=== PATIENT | male | born 1970 | race Caucasian/White ===

== ENCOUNTER 2016-11-03 13:47 | Inpatient (IN) | payer BC ==
[~2016-11-03] VITALS: Ht 185.4 cm; Wt 73.5 kg
[2016-11-03] MEDS ORDERED: CYCL10TA PO ×2 (14:11→22:28)
[2016-11-03] MEDS ORDERED: ALEV220T26 PO (14:11)
--- NOTE | 2016-11-03 15:20 | REP ---
CHEST, TWO VIEWS: No comparison study. Two views of the chest are performed. There is mild bibasilar atelectasis/infiltrate along the diaphragms. Heart is normal in size. Mediastinal silhouette is unremarkable. There are mild degenerative changes of the spine. IMPRESSION: Mild bibasilar atelectasis/infiltrate. Signed by Gil Pulido MD 11/03/2016 04:19 P
[2016-11-03] MEDS ORDERED: KETOROLAC 30 MG/ML VIAL (J1885) IV ONE (18:30)
[2016-11-03] MEDS ORDERED: ONDANSETRON 4MG/2ML VIAL (J2405) IV ONE (18:30)
[2016-11-03] MEDS ORDERED: NS 1,000 ML IV ONE (18:30)
[2016-11-03 18:53] LABS: BASO % 0.1 % (0.0-1.0); EOS # 0.1 K/mm3 (0.0-0.50); EOS % 0.6 % (0.0-3.0); LARGE UNSTAINED CELL # 0.1 K/mm3 (0.0-0.4); LARGE UNSTAINED CELL % 0.5 % (0.0-4.0); LYMPH # 1.1 K/mm3 (1.5-4.5); LYMPH % 8.6 % (24.0-44.0); MEAN CORPUSCULAR HEMOGLOBIN 33.8 pg (27.0-33.0); MEAN CORPUSCULAR HGB CONC 34.7 g/dl (32.0-36.5); MEAN CORPUSCULAR VOLUME 97.4 fl (80.0-96.0); MONO # 0.6 K/mm3 (0.0-0.8); MONO % 4.9 % (0.0-5.0); NEUTROPHILS # 10.4 K/mm3 (1.8-7.7); NEUTROPHILS % 85.3 % (36.0-66.0); PLATELET COUNT, AUTOMATED 315 k/mm3 (150-450); WHITE BLOOD COUNT 12.1 K/mm3 (4.0-10.0)
[2016-11-03 19:14] LABS: ALBUMIN/GLOBULIN RATIO 0.75 (1.00-1.93); ALKALINE PHOSPHATASE 117 U/L (45-117); ALT/SGPT 45 U/L (12-78); ANION GAP 7 MEQ/L (8-16); AST/SGOT 19 U/L (15-37); BILIRUBIN,DIRECT 0.1 MG/DL (0.0-0.2); BILIRUBIN,TOTAL 0.5 MG/DL (0.2-1.0); BLOOD UREA NITROGEN 13 MG/DL (7-18); CALCIUM LEVEL 8.6 MG/DL (8.5-10.1); CARBON DIOXIDE LEVEL 27 MEQ/L (21-32); CHLORIDE LEVEL 108 MEQ/L (98-107); CREATININE FOR GFR 0.87 MG/DL (0.70-1.30); GLOMERULAR FILTRATION RATE > 60.0 (>60); GLUCOSE, FASTING 111 MG/DL (70-105); POTASSIUM SERUM 3.9 MEQ/L (3.5-5.1); SODIUM LEVEL 142 MEQ/L (136-145)
[2016-11-03] MEDS ORDERED: HYDROmorphone HCL 1 MG/ML SYRINGE (J1170) IV ONE ×2 (19:30→21:45)
[2016-11-03] MEDS ORDERED: ISOVUE-370 76% 100ML VIAL (Q9967) As Ordered ONE (19:49)
--- NOTE | 2016-11-03 21:50 | REPUSA ---
CT angiogram of the chest Clinical statement: Chest pain and shortness of breath. Technique: Multiple axial CT images were obtained from the thoracic inlet through the upper abdomen a fter a bolus administration of nonionic intravenous contrast. Coronal and sagittal reconstructions we re also obtained. No comparison is available. Findings: The pulmonary arteries are well-opacified with contrast. There are intraluminal filling def ects bilaterally.in the right lung, there is an embolism within the posterior segment of the right lo wer lobe. On the left side, there is embolism in the left main pulmonary artery extending into the le ft upper and left lower lobes. The thoracic aorta is unremarkable. Thyroid gland is within normal feliciano its. There is no thoracic lymphadenopathy. There is a small right-sided pleural effusion with right l ower lobe infiltrate. There is also minimal left lower lobe infiltrate. Limited imaging of the upper abdomen is unremarkable. There are no suspicious osseous lesions. Impression: 1. Pulmonary embolism in the left main pulmonary artery extending into the left upper and left lower lobe segmental branches. 2. Embolism in the posterior segment of the right lower lobe pulmonary artery. 3. Small right-sided pleural effusion. Bilateral lower lobe infiltrate/atelectasis. ER physician was notified of these findings at 9:47 PM on 11/03/2016.
[2016-11-03] MEDS ORDERED: PERCOCET 5MG/325MG TAB PO PRN (23:15)
[2016-11-03 23:58] LABS: ERYTHROCYTE SEDIMENTATION RATE 23 mm/hr (0-15)
[2016-11-04] VITALS (7 sets, daily range): BP systolic 100–114; BP diastolic 56–76
--- NOTE | 2016-11-04 00:20 | REPUSA ---
CLINICAL HISTORY: Edema. COMMENTS: Real time sonography with duplex doppler of the extremities bilaterally was performed with attention to the major deep venous structures. Partially occluded right common femoral vein. Occluded superficial femoral vein. Duplicated superficial femoral vein. The second vein is patent. The remaining deep veins are unremarkable. IMPRESSION: Acute deep venous thrombosis as described above. Thank you for your kind referral of this patient.
[2016-11-04] MEDS ORDERED: APIXABAN 5 MG TAB (ELIQUIS) PO ONE (02:00)
[2016-11-04] MEDS: MORPHINE 2 MG/ML 1ML SYRINGE IV PRN ×3 (02:39→19:08)
--- NOTE | 2016-11-04 05:20 | HPE ---
DATE OF ADMISSION: 11/03/2016 REASON FOR ADMISSION: Pulmonary emboli. PRIMARY CARE PROVIDER: None. HISTORY OF PRESENT ILLNESS: Patient is a 46-year-old male with no past medical history presented to the emergency room complaining of right-sided flank pain. Patient stated that it started earlier that day. He was sitting and he felt sharp stabbing pain in his right left flank. It was worsened by deep inspiration. He presented to the emergency room. He underwent a CT of the abdomen, which showed right lower lobe infiltrate in the lung, some atelectatic change in the left lower lobe. He was shown to have distended urinary bladder and no hydronephrosis, normal appendix and no other acute findings found. He underwent also a CT of the chest. CT angiogram, which showed pulmonary emboli in the left main pulmonary artery extending into the left upper and lower lobe branches. He was also found to have emboli in the posterior segment of the right lower lobe of the pulmonary artery. Patient's oxygen saturation were 94-93 on room air. He was not tachycardiac with a pulse in the 80s. He was however, complaining of pain requiring two doses of Dilaudid and a dose of Toradol. Hospitalist was called for the admission. REVIEW OF SYSTEMS: 12-point review of systems was obtained. All which was negative except for those mentioned above. PAST MEDICAL HISTORY: Patient has no medical history. He was evaluated in the past by urology for possible bladder cancer after he had some episodes of blood in the urine. However, workup was found to be negative. He has not seen a doctor in many years. He is currently on no medications other than Advil he takes occasionally for pain. PAST SURGICAL HISTORY: None. ALLERGIES: None. MEDICATIONS: None. FAMILY HISTORY: Noncontributory. Patient has no family history of blood clots or any clotting disorder that he knows of. SOCIAL HISTORY: Patient smokes half a pack to a quarter of a pack a day for many years. Denies any alcohol use. Lives at home with his mother. PHYSICIAN FINDINGS: Temperature on admission 98.3, pulse 85, respiratory rate 20, blood pressure is 114/76, pulse oximetry 94% on room air. HEENT: Pupils equal round reactive light accommodation. Neck: Supple. No jugular venous distention (JVD). Lungs: Clear bilaterally. Abdomen: Soft, nontender, nondistended. Cardiac: Regular rate and rhythm. No murmurs appreciated. Extremities: No clubbing, cyanosis or edema. LABORATORY FINDINGS: WBC is 12.1, hemoglobin 14.4, hematocrit 41.9, platelet count 315. Sedimentation rate 23. Urinalysis was normal. Sodium 142, potassium 3.9, chloride 108, BUN 13, creatinine 0.87, fasting glucose 111, troponin less than 0.02, C-reactive protein 8.91, lipase 118. IMAGING STUDIES: As above. Lower extremity ultrasound was also done. It showed acute deep venous thrombosis (DVT) partially occluding the right common femoral vein. ASSESSMENT AND PLAN: : 1. Bilateral pulmonary emboli. Patient was found to have a left main pulmonary artery emboli extending it into the left upper and lower lobe segments and a right lower lobe pulmonary artery embolism. 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 He denies any family history of blood clots. He denies any personal history of any DVTs or PEs. He stated that he had leg pain last week over his left leg and it was swollen, but he did not seek any medical attention at the time. Right now he denies any lower extremity pain, however does appear to be more swollen on the left side. We will admit patient, start him on Eliquis 10 mg by mouth twice a day. We will order hypercoagulability workup. Patient will need to establish with primary care provider. 2. Deep venous thrombosis in right common femoral vein. We will continue Eliquis twice a day. 3. History of tobacco abuse. We will advise patient on smoking cessation. 4. Chest pain, likely secondary to pulmonary emboli. We will continue to trend cardiac enzymes. We will order an echocardiogram. 5. Patient had history of hematuria in the past. He was evaluated by urology. He was not found to have any signs of cancer at the time had a cystoscopy in 2008. May need another workup to rule out any obvious sources of cancer. Patient will be seen by Dr. Elzbieta Beatty in the morning.
[2016-11-04 05:56] LABS: BASO % 0.1 % (0.0-1.0); EOS # 0.1 K/mm3 (0.0-0.50); EOS % 0.6 % (0.0-3.0); LARGE UNSTAINED CELL # 0.1 K/mm3 (0.0-0.4); LARGE UNSTAINED CELL % 1.3 % (0.0-4.0); LYMPH # 1.3 K/mm3 (1.5-4.5); LYMPH % 11.8 % (24.0-44.0); MEAN CORPUSCULAR HEMOGLOBIN 33.5 pg (27.0-33.0); MEAN CORPUSCULAR HGB CONC 34.5 g/dl (32.0-36.5); MEAN CORPUSCULAR VOLUME 97.1 fl (80.0-96.0); MONO # 0.6 K/mm3 (0.0-0.8); MONO % 5.7 % (0.0-5.0); NEUTROPHILS # 8.6 K/mm3 (1.8-7.7); NEUTROPHILS % 80.5 % (36.0-66.0); PLATELET COUNT, AUTOMATED 297 k/mm3 (150-450); RED CELL DISTRIBUTION WIDTH 12.9 % (11.5-14.5); WHITE BLOOD COUNT 10.6 K/mm3 (4.0-10.0)
--- NOTE | 2016-11-04 06:23 | REP ---
CT abdomen and pelvis without IV or oral contrast: Renal stone protocol. History: Question right-sided kidney stone. Comparison CT study is from March 21, 2009. Findings: Preliminary digital business objects report developer radiograph is unremarkable. There is an infiltrate in the right lower lobe of the lung consistent with pneumonia. There is also granulomatous calcification and a very small quantity of right pleural fluid. There is patchy consolidation in the left lung base as well. These findings are new when compared with the 2009 prior exam. The opacities in the left base may be atelectatic. The liver and the spleen are normal in size, homogeneous in texture. Gallbladder is unremarkable. No adrenal lesion is seen. The pancreas shows no abnormality. There is no evidence of intrarenal calculus or hydronephrosis on either side. No ureteral stone is visible. The urinary bladder is rather distended but otherwise intact. No bladder calculus is appreciated. No bladder mass lesion is observed. Seminal vesicles and prostate are unremarkable. No abdominal wall defect is seen. Small and large bowel loops are normal in the abdomen and pelvis. A normal appendix is seen in the right lower quadrant. There is some vascular calcification. Impression: Distended urinary bladder. No hydronephrosis or renal calculus seen. Normal appendix noted. Otherwise negative CT study of the abdomen and pelvis without contrast. Signed by Gerry Shannon MD 11/04/2016 10:04 A
[2016-11-04 06:24] LABS: ALBUMIN 2.9 GM/DL (3.2-5.2); ALBUMIN/GLOBULIN RATIO 0.97 (1.00-1.93); ALKALINE PHOSPHATASE 112 U/L (45-117); ALT/SGPT 37 U/L (12-78); ANION GAP 8 MEQ/L (8-16); AST/SGOT 14 U/L (15-37); BILIRUBIN,TOTAL 0.7 MG/DL (0.2-1.0); BLOOD UREA NITROGEN 12 MG/DL (7-18); CALCIUM LEVEL 8.3 MG/DL (8.5-10.1); CARBON DIOXIDE LEVEL 26 MEQ/L (21-32); CHLORIDE LEVEL 108 MEQ/L (98-107); CREATININE FOR GFR 0.73 MG/DL (0.70-1.30); GLOMERULAR FILTRATION RATE > 60.0 (>60); GLUCOSE, FASTING 96 MG/DL (70-105); MAGNESIUM LEVEL 2.3 MG/DL (1.8-2.4); POTASSIUM SERUM 4.2 MEQ/L (3.5-5.1); SODIUM LEVEL 142 MEQ/L (136-145); TOTAL PROTEIN 5.9 GM/DL (6.4-8.2)
[2016-11-04] MEDS: APIXABAN 5 MG TAB (ELIQUIS) PO SCH ×2 (08:44→20:13)
[2016-11-04] MEDS: PERCOCET 5MG/325MG TAB PO PRN ×3 (08:45→21:19)
[2016-11-04] MEDS: NICOTINE 14 MG/24 HR TRANSDERMAL TD SCH (08:45)
[2016-11-04] MEDS: KETOROLAC 30 MG/ML VIAL (J1885) IV PRN ×3 (11:34→23:28)
[2016-11-05] MEDS: PERCOCET 5MG/325MG TAB PO PRN ×4 (03:13→21:53)
[2016-11-05 04:00] VITALS: BP 110/63
[2016-11-05 05:50] LABS: BASO % 0.4 % (0.0-1.0); EOS # 0.1 K/mm3 (0.0-0.50); EOS % 1.5 % (0.0-3.0); LARGE UNSTAINED CELL # 0.1 K/mm3 (0.0-0.4); LARGE UNSTAINED CELL % 1.4 % (0.0-4.0); LYMPH # 1.3 K/mm3 (1.5-4.5); LYMPH % 18.7 % (24.0-44.0); MEAN CORPUSCULAR HGB CONC 34.2 g/dl (32.0-36.5); MEAN CORPUSCULAR VOLUME 99.5 fl (80.0-96.0); MONO # 0.5 K/mm3 (0.0-0.8); MONO % 7.6 % (0.0-5.0); NEUTROPHILS # 4.4 K/mm3 (1.8-7.7); NEUTROPHILS % 70.4 % (36.0-66.0); PLATELET COUNT, AUTOMATED 277 k/mm3 (150-450); RED CELL DISTRIBUTION WIDTH 12.9 % (11.5-14.5); WHITE BLOOD COUNT 6.3 K/mm3 (4.0-10.0)
[2016-11-05 06:09] LABS: ALBUMIN 2.6 GM/DL (3.2-5.2); ALBUMIN/GLOBULIN RATIO 0.72 (1.00-1.93); ALKALINE PHOSPHATASE 109 U/L (45-117); ALT/SGPT 45 U/L (12-78); ANION GAP 2 MEQ/L (8-16); AST/SGOT 31 U/L (15-37); BILIRUBIN,TOTAL 0.3 MG/DL (0.2-1.0); BLOOD UREA NITROGEN 10 MG/DL (7-18); CALCIUM LEVEL 8.1 MG/DL (8.5-10.1); CARBON DIOXIDE LEVEL 30 MEQ/L (21-32); CHLORIDE LEVEL 108 MEQ/L (98-107); CREATININE FOR GFR 0.76 MG/DL (0.70-1.30); GLOMERULAR FILTRATION RATE > 60.0 (>60); GLUCOSE, FASTING 99 MG/DL (70-105); MAGNESIUM LEVEL 2.2 MG/DL (1.8-2.4); POTASSIUM SERUM 4.2 MEQ/L (3.5-5.1); SODIUM LEVEL 140 MEQ/L (136-145); TOTAL PROTEIN 6.2 GM/DL (6.4-8.2)
[2016-11-05] MEDS: KETOROLAC 30 MG/ML VIAL (J1885) IV PRN ×3 (06:28→19:15)
[2016-11-05 08:16] VITALS: BP 116/74
[2016-11-05] MEDS: NICOTINE 14 MG/24 HR TRANSDERMAL TD SCH (08:32)
[2016-11-05] MEDS: APIXABAN 5 MG TAB (ELIQUIS) PO SCH ×2 (08:33→20:02)
--- NOTE | 2016-11-05 09:18 | ECGEPIP ---
Stationary ECG Study [facility] - ED Test Date: 2016-11-03 Pat Name: MAYANK BARTHOLOMEW Department: Room: [place] [address] Gender: M Battery Assembler: nereida : 1970 Requested By: Ernesto Angel PA-C Order Number: [id number] Reading MD: Louise Dale Measurements Intervals Reubens Rate: 90 P: 41 [place]: 130 QRS: 37 QRSD: 94 T: 39 QT: 373 QTc: 458 Interpretive Statements SINUS RHYTHM NO PRIOR FOR COMPARISON Electronically Signed On 11-05-2016 9:18:44 EST by Louise Dale
[2016-11-05 11:28] VITALS: BP 109/60
[2016-11-05] MEDS ORDERED: ELIQ5TAB PO ×2 (13:04→13:14)
--- NOTE | 2016-11-05 13:17 | IPNPDOC ---
Subjective Date Seen The patient was seen on 11/05/16. Subjective Chief Complaint/HPI The patient is a 46-year-old male admitted with a reason for visit of Pulmonary Embolism. Events since last encounter chest pain better controlled, cough better , no fever or chills, no leg pain , no nausea or vomiting or diarrhea, no abdominal pain . Objective Physical Examination General Exam: Positive: Alert, No Acute Distress Eye Exam: Positive: Conjunctiva & lids normal, EOMI, PERRLA, Negative: Sclera icteric ENT Exam: Positive: Atraumatic, Mucous membr. moist/pink, Pharynx Normal Neck Exam: Positive: Supple, Negative: JVD, thyromegaly Chest Exam: Positive: Clear to auscultation, Normal air movement Heart Exam: Positive: Normal S1, Normal S2, Rate Normal, Regular Rhythm, Negative: Murmurs, Rubs Telemetry: Positive: No significant arrhythmia Abdomen Exam: Positive: Normal bowel sounds, Soft, Negative: Hepatospenomegaly, Tenderness Extremity Exam: Positive: Normal pulses, Negative: Clubbing, Cyanosis, Edema Skin Exam: Positive: Nl turgor and temperature, Negative: Breakdown, Rash Assessment /Plan Problems (1) DVT (deep venous thrombosis) Status: Acute Problem Text: right femoral vein continue eliquis (2) Pulmonary embolism Status: Acute Problem Text: continue Eliquis pain control with percocet and ketorolac prn. Plan/VTE VTE Prophylaxis Ordered?: Yes VS, I&O, 24H, [facility] Vital Signs/I&O Vital Signs Date Time Temp Pulse Resp B/P Pulse Ox O2 Delivery O2 Flow Rate FiO2 11/05/16 12:00 Room Air 11/05/16 11:28 96.6 71 20 109/60 95 I&O- Last 24 Hours up to 6 AM 11/05/16 06:00 Intake Total 2700 ml Output Total 1350 ml Balance 1350 ml Laboratory Data 24H LABS Laboratory Tests 2 11/04/16 13:55: Creatine Kinase MB 1.0, Creatine Kinase MB Relative Index 2.17, Total Creatine Kinase 46, Troponin I < 0.02 11/04/16 20:44: Creatine Kinase MB 1.0, Creatine Kinase MB Relative Index 2.27, Total Creatine Kinase 44, Troponin I < 0.02 11/05/16 05:29: Blood Urea Nitrogen 10, Creatinine 0.76, Sodium Level 140, Potassium Level 4.2, Chloride Level 108H, Carbon Dioxide Level 30, Calcium Level 8.1L, Aspartate Amino Transf (AST/SGOT) 31, Alanine Aminotransferase (ALT/SGPT) 45, Alkaline Phosphatase 109, Total Bilirubin 0.3#, Total Protein 6.2L, Albumin 2.6L, Albumin /Globulin Ratio 0.72L, Anion Gap 2L, White Blood Count 6.3, Red Blood Count 3.78L, Hemoglobin 12.8L, Hematocrit 37.6L, Mean Corpuscular Volume 99.5H, Mean Corpuscular Hemoglobin 34.0H, Mean Corpuscular Hemoglobin Concent 34.2, Red Cell Distribution Width 12.9, Platelet Count 277, Neutrophils (%) (Auto) 70.4H, Lymphocytes (%) (Auto) 18.7L, Monocytes (%) (Auto) 7.6H, Eosinophils (%) (Auto) 1.5, Basophils (%) (Auto) 0.4, Neutrophils # (Auto) 4.4, Lymphocytes # (Auto) 1.3L, Monocytes # (Auto) 0.5, Eosinophils # (Auto) 0.1, Basophils # (Auto) 0.0, Glomerular Filtration Rate > 60.0, Large Unclassified Cells # 0.1, Large Unclassified Cells % 1.4, Magnesium Level 2.2 CBC/BMP Laboratory Tests 11/05/16 05:29 Calcium Level 8.1 L, Aspartate Amino Transf (AST/SGOT) 31, Alanine Aminotransferase (ALT/SGPT) 45, Alkaline Phosphatase 109, Total Bilirubin 0.3 # , Total Protein 6.2 L, Albumin 2.6 L, Red Blood Count 3.78 L, Mean Corpuscular Volume 99.5 H, Mean Corpuscular Hemoglobin 34.0 H, Mean Corpuscular Hemoglobin Concent 34.2, Red Cell Distribution Width 12.9, Neutrophils (%) (Auto) 70.4 H, Lymphocytes (%) (Auto) 18.7 L, Monocytes (%) (Auto) 7.6 H, Eosinophils (%) (Auto ) 1.5, Basophils (%) (Auto) 0.4, Neutrophils # (Auto) 4.4, Lymphocytes # (Auto) 1.3 L, Monocytes # (Auto) 0.5, Eosinophils # (Auto) 0.1, Basophils # (Auto) 0.0 HUGO GOTTLIEB MD Nov 05, 2016 13:17
[2016-11-05 15:43] VITALS: BP 132/81
--- NOTE | 2016-11-05 16:36 | ECHO ---
DATE OF PROCEDURE: 11/05/2016 REFERRING PHYSICIAN: Dr. Eneida Christensen INDICATION: Dyspnea. HEIGHT: 185 cm WEIGHT: 73 kg MEASUREMENTS: Left atrium: 3.9 cm Aortic root: 3.2 cm LVOT: 2.3 cm Ventricular septum: 0.97 cm Posterior wall: 0.97 cm Left ventricle diastole: 5.3 cm Inferior vena cava: 1.6 cm DOPPLER MEASUREMENTS: Aortic valve velocity: 127 cm/s LVOT velocity: 91.7 cm/s LVOT/VTI: 17.0 cm Mild mitral regurgitation Mitral E velocity: 68.6 cm/s Mitral A velocity: 53.3 cm/s Beth deceleration time: 201 ms. Mild tricuspid regurgitation. Estimated right ventricle systolic pressure: 23-28 mmHg assuming a right atrial pressure of 5-10 mmHg. Pulmonary artery systolic pressure: 21 mmHg by pulmonary acceleration time method. MITRAL ANNULAR TISSUE DOPPLER: E prime septal: 10.4 cm/s E prime lateral: 11.8 cm/s DESCRIPTION: Rhythm was sinus. Image quality was adequate. No pericardial effusion. This is a 2D, M-mode, color flow Doppler, and pulse wave Doppler examination and included mitral annular tissue Doppler. CONCLUSIONS: 1. Normal echocardiogram Dopppler. 2. Normal left ventricle internal dimensions and wall thickness. No regional wall motion abnormalities. Normal left ventricle (LV) systolic function. Left ventricular ejection fraction (LVEF) 60% by visual estimate. Normal LV diastolic function. 3. Normal estimated right ventricle systolic pressure.
[2016-11-05 19:58] VITALS: BP 125/78
[2016-11-05 22:00] VITALS: BP 122/71
[2016-11-06] MEDS: KETOROLAC 30 MG/ML VIAL (J1885) IV PRN ×2 (01:23→07:42)
[2016-11-06 02:00] VITALS: BP 115/75
[2016-11-06] MEDS: PERCOCET 5MG/325MG TAB PO PRN ×2 (05:07→12:05)
[2016-11-06 06:00] VITALS: BP 114/74
[2016-11-06 06:52] LABS: BASO % 0.4 % (0.0-1.0); EOS # 0.2 K/mm3 (0.0-0.50); EOS % 3.7 % (0.0-3.0); LARGE UNSTAINED CELL # 0.1 K/mm3 (0.0-0.4); LARGE UNSTAINED CELL % 1.3 % (0.0-4.0); LYMPH # 1.1 K/mm3 (1.5-4.5); MEAN CORPUSCULAR HEMOGLOBIN 33.6 pg (27.0-33.0); MONO # 0.3 K/mm3 (0.0-0.8); MONO % 5.9 % (0.0-5.0); NEUTROPHILS # 3.9 K/mm3 (1.8-7.7); NEUTROPHILS % 70.6 % (36.0-66.0); PLATELET COUNT, AUTOMATED 302 k/mm3 (150-450); RED CELL DISTRIBUTION WIDTH 12.5 % (11.5-14.5); WHITE BLOOD COUNT 5.5 K/mm3 (4.0-10.0)
[2016-11-06 07:14] LABS: ALBUMIN 2.7 GM/DL (3.2-5.2); ALBUMIN/GLOBULIN RATIO 0.69 (1.00-1.93); ALKALINE PHOSPHATASE 125 U/L (45-117); ALT/SGPT 63 U/L (12-78); ANION GAP 8 MEQ/L (8-16); AST/SGOT 40 U/L (15-37); BILIRUBIN,TOTAL 0.4 MG/DL (0.2-1.0); BLOOD UREA NITROGEN 10 MG/DL (7-18); CALCIUM LEVEL 8.5 MG/DL (8.5-10.1); CARBON DIOXIDE LEVEL 27 MEQ/L (21-32); CHLORIDE LEVEL 108 MEQ/L (98-107); CREATININE FOR GFR 0.71 MG/DL (0.70-1.30); GLOMERULAR FILTRATION RATE > 60.0 (>60); GLUCOSE, FASTING 97 MG/DL (70-105); MAGNESIUM LEVEL 2.1 MG/DL (1.8-2.4); SODIUM LEVEL 143 MEQ/L (136-145); TOTAL PROTEIN 6.6 GM/DL (6.4-8.2)
[2016-11-06] MEDS: APIXABAN 5 MG TAB (ELIQUIS) PO SCH (07:41)
[2016-11-06] MEDS: NICOTINE 14 MG/24 HR TRANSDERMAL TD SCH (07:42)
[2016-11-06] MEDS ORDERED: PERCOCET PO (09:39)
--- NOTE | 2016-11-07 09:35 | DSES ---
DATE OF ADMISSION: 11/04/2016 DATE OF DISCHARGE: 11/06/2016 PRIMARY CARE PROVIDER: New primary care provider given to the patient at [facility]. DISCHARGE DIAGNOSES: Pulmonary embolism. Right sided lower extremity deep venous thrombosis (DVT). DISCHARGE MEDICATIONS: - Eliquis 10 mg twice daily for 5 days, then 5 mg twice daily to continue - oxycodone/acetaminophen 5/325 one to two tablets by mouth every 8 hours as needed pain - cyclobenzaprine 10 mg by mouth three times daily as needed muscle spasms - Naproxen 220 mg two tablets by mouth daily as needed pain HOSPITAL COURSE: This is a 46-year-old male with no past medical history, presented to the emergency room complaining of right sided flank pain and right sided lower chest pain which was sharp and worsened with deep inspiration. He underwent initially a CT of the abdomen which showed right lower lobe infiltrate in the lung and some atelectatic changes in the left lower lobe. Subsequently he underwent CT angio of the chest which showed pulmonary embolism in the left main pulmonary artery extending into the left upper and lower lobe branches and also emboli in the posterior segment of the right lower lobe and of the pulmonary artery. Patient did not have any hypoxia or tachycardia. Patient also had ultrasound scanning of the lower extremities which showed right sided deep venous thrombosis (DVT) involving the partially occluded right common femoral vein, occluded superficial femoral vein on the right. Patient was admitted and treated for pulmonary embolism and deep venous thrombosis (DVT). At present, vital signs stable, patient is functionally at baseline. Pain is controlled and is going to be discharged home. Patient's hypocoagulable workup has been ordered and is pending. Patient has been set up with a new primary care provider. PHYSICAL EXAMINATION: Vital signs: Temperature 96.3, pulse 61, respiratory rate 18, blood pressure 114/74, pulse oximetry 95% on room air. General: Patient awake, alert, oriented times three, sitting up in bed in no acute distress. HEENT: Normocephalic, atraumatic. Moist mucous membranes. Anicteric eyes. Chest: Clear to auscultation. Cardiovascular: S1, S2, regular. No rub, murmur or gallop. Abdomen: Soft, nontender. Bowel sounds present. Extremities: No edema. LABORATORY DATA: WBC 5.5, hemoglobin 13.2, platelets 302. Sodium 143, potassium 4, chloride 108, bicarbonate 27, BUN 10, creatinine 0.7. Liver function tests are normal. Cardiac enzymes, three sets are normal. Echocardiogram was normal ejection fracture. Left ventricular ejection fraction was 60%. There was normal left ventricular diastolic function. There was no regional wall motion abnormalities and normal valves. DISPOSITION: Patient is discharged home in stable condition. DISCHARGE INSTRUCTIONS: Patient to followup with primary care provider in 1 week. Regular diet. Activity as tolerated.
[2016-11-10 14:10] LABS: PROTEIN C ANTIGEN 47 % (60-150); PROTEIN S ANTIGEN FREE 144 % (57-157); PROTEIN S ANTIGEN TOTAL 146 % (60-150); SJOGREN'S ANTI SS-A <0.2 AI (0.0-0.9); SJOGREN'S ANTI SS-B <0.2 AI (0.0-0.9)
== END 2016-11-06 12:51 | disposition home or self-care (01) | DRG 197 ==
LOC: M ED 15:33 → M ED INP 22:23 → M PCU 11-04 01:59 → OBSVTOIN 11-04 10:24 → M MSPAV 11-05 19:53
PROVIDERS: ADMIT Internal Medicine; ATTEND Internal Medicine Nephrology
DX: I82.411 Acute embolism and thrombosis of right femoral vein (principal); I26.99 Other pulmonary embolism without acute cor pulmonale; F17.210 Nicotine dependence, cigarettes, uncomplicated

== ENCOUNTER 2022-09-03 05:18 | Emergency (ER) | payer BC ==
[~2022-09-03] VITALS: Ht 182.9 cm; Wt 72.9 kg
[~2022-09-03 05:18] MED LIST: ALEV220T26 PO; CYCL-707 PO; ELIQ5TAB PO; PERCOCET PO
[2022-09-03] MEDS ORDERED: SIMV40TA20 PO (05:35)
[2022-09-03 05:54] LABS: HEMATOCRIT 45.2 % (42.0-52.0); HEMOGLOBIN 15.5 g/dl (13.5-17.5); MEAN CORPUSCULAR HGB CONC 34.3 g/dl (32.0-36.5); MEAN CORPUSCULAR VOLUME 96.2 fl (80.0-96.0); PLATELET COUNT, AUTOMATED 261 10^3/uL (150-450); WHITE BLOOD COUNT 6.9 10^3/uL (4.0-10.0)
[2022-09-03 06:04] LABS: INR 1.12; PROTHROMBIN TIME 14.6 SECONDS (12.5-14.5)
[2022-09-03 06:26] LABS: CK-MB VALUE MASS 1.2 NG/ML (<3.6)
[2022-09-03 06:28] LABS: BLOOD UREA NITROGEN 20 MG/DL (9-23); CALCIUM LEVEL 9.6 MG/DL (8.5-10.1); CARBON DIOXIDE LEVEL 27 MMOL/L (20-31); CHLORIDE LEVEL 103 MMOL/L (98-107); CREATININE FOR GFR 0.78 MG/DL (0.70-1.30); GLOMERULAR FILTRATION RATE > 60.0 (>56); GLUCOSE, FASTING 104 MG/DL (60-100); POTASSIUM SERUM 4.6 MMOL/L (3.5-5.1); SODIUM LEVEL 141 MMOL/L (136-145)
[2022-09-03 06:31] LABS: CPK CREATINE PHOSPHOKINASE 77 U/L (46-171); MB/CK RELATIVE INDEX 1.55 (< OR =4)
[2022-09-03 06:58] LABS: ATYPICAL LYMPH 4 % (0-5); BASOPHILS 1 % (0-1); EOSINOPHILS 4 % (0-3); LYMPHOCYTES 18 % (16-44); MONOCYTES 10 % (0-5); NEUTROPHILS 63 % (28-66); PLATELET ESTIMATE NORMAL (NORMAL)
[2022-09-03] MEDS ORDERED: KETOROLAC 30 MG/ML 1ML VIAL IV ONE (07:55)
[2022-09-03] MEDS ORDERED: ISOVUE-370 76% 100ML VIAL As Ordered ONE (08:14)
[2022-09-03 08:56] LABS: CPK CREATINE PHOSPHOKINASE 61 U/L (46-171); MB/CK RELATIVE INDEX 1.63 (< OR =4)
[2022-09-03] MEDS ORDERED: PERCOCET 5MG/325MG TAB PO ONE (10:00)
[2022-09-03] MEDS ORDERED: OXYC1TAB23 PO (10:30)
[2022-09-03] MEDS ORDERED: PRED20TA PO (10:30)
[2022-09-03] MEDS ORDERED: predniSONE 20 MG TAB PO ONE (10:30)
[2022-09-03 11:01] VITALS: BP 105/57
[2022-09-04] MEDS ORDERED: NICO21DI37 TOP (06:51)
== END 2022-09-03 11:12 | disposition home or self-care (01) ==
LOC: M ED 05:18
DX: R09.1 Pleurisy (principal); E78.9 Disorder of lipoprotein metabolism, unspecified; F17.210 Nicotine dependence, cigarettes, uncomplicated; Z79.899 Other long term (current) drug therapy; Z79.01 Long term (current) use of anticoagulants; Z86.718 Personal history of other venous thrombosis and embolism
CPT/HCPCS: 36415; 71045; 71275; 80048; 82550; 82553; 84484; 85025; 85610; 93041; 94760; 96374; 99285; J7512

== ENCOUNTER → 2023-08-10 | Outpatient (CLI) | payer BC ==
[~2023-08-10] MED LIST changes: +NICO21DI37 TOP; +OXYC1TAB23 PO; +PRED20TA PO; +SIMV40TA20 PO
== END ==
LOC: M RAD 10:28
PROVIDERS: ATTEND Physician Assistant
DX: I87.311 Chronic venous hypertension (idiopathic) with ulcer of right lower extremity (principal); L97.912 Non-pressure chronic ulcer of unspecified part of right lower leg with fat layer exposed; R52 Pain, unspecified

== ENCOUNTER → 2024-09-19 | Outpatient (CLI) | payer BC | LOC: M RAD 10:48 | PROVIDERS: ATTEND Physician Assistant | DX: I87.2 Venous insufficiency (chronic) (peripheral) (principal); I82.512 Chronic embolism and thrombosis of left femoral vein ==